=== PATIENT | female | born 1955 | race Caucasian/White ===

== ENCOUNTER → 2024-11-12 10:55 | Outpatient (CLI) | payer MEDICARE, OTHER, SELFPAY ==
[2024-11-12 12:25] LABS: Influenza A - CEPHEID Flu A NEGATIVE (NEGATIVE); Influenza B - CEPHEID Flu B NEGATIVE (NEGATIVE); Respiratory Syncytial Virus Negative (Negative)
[2024-11-12 12:30] LABS: COVID-19 CEPHEID 4-PLEX PCR Negative (Negative)
== END ==
PROVIDERS: PCP Physician Assistant Medical; Visit Provider Physician Assistant Medical
DX: R05.9 Cough, unspecified (principal)
CPT/HCPCS: 0241U